=== PATIENT | female | born 1985 | race Hispanic/Latino ===

== ENCOUNTER 2025-04-10 13:47 | Emergency (ER) | payer BC ==
[~2025-04-10] VITALS: Ht 165.1 cm; Wt 83.9 kg
[2025-04-10 15:33] LABS: IMMATURE GRANULOCYTE ABSOLUTE 0.04 K/uL (0-1); NUCLEATED RED BLOOD CELLS 0.0 % (0.0-0.19); PLATELET COUNT (AUTO) 251 K/uL (130-400); RED BLOOD CELL COUNT(AUTO) 4.25 MIL/uL (4.00-5.50); RED CELL DISTRIBUTION WIDTH 13.6 % (11.0-15.5); WHITE BLOOD COUNT (AUTO) 9.8 K/uL (4.8-10.8)
[2025-04-10 16:15] LABS: CREATININE 0.5 mg/dL (0.5-1.0); GLOMERULAR FILTR. RATE CALC 122.0 mL/min (>90); GLUCOSE,RANDOM 84.0 mg/dL (70-105); SODIUM SERUM 142.0 mmol/L (136-145); UREA NITROGEN, BLOOD 11.0 mg/dL (7-18)
--- NOTE | 2025-04-10 16:22 | NUR ---
CT CONTACTED FOR PEND IMAGING
--- NOTE | 2025-04-10 16:50 | ERN ---
General Chief Complaint: Pelvic Pain Stated Complaint: PELVIC PAIN Time Seen by MD: 14:24 Source: patient History of Present Illness Initial Comments 39-year-old female with no past medical history beyond a and gastric bypass surgery. She comes in with left inguinal pain that is kind of a dull ache. It seems to get worse with the exertion and when she sits up to get out of bed. No other associated symptoms Allergies: Coded Allergies: No Known Drug Allergies (Unverified Allergy, Unknown, 04/10/25) Past Medical History Past Medical History: No Pertinent History Medical History Other: denies pmhx Past Surgical History: Appendectomy, Other, Surgical History Other: gastroectomy Constitutional: (-) chills, (-) diaphoresis, (-) fever, (-) malaise, (-) weakness, (-) other documentation EENTM: (-) eye pain, (-) blurred vision, (-) tearing, (-) double vision, (-) ear pain, (-) ear discharge, (-) nose pain, (-) nose congestion, (-) throat pain, (-) Throat swelling, (-) mouth pain, (-) tooth pain, (-) mouth swelling, (-) other documentation Respiratory: (-) cough, (-) orthopnea, (-) short of breath, (-) stridor, (-) wheezing, (-) other documentation Cardiovascular: (-) chest pain, (-) edema, (-) palpitations, (-) syncope, (-) dyspnea on exertion, (-) other documentation Gastrointestinal/Abdominal: (-) nausea, (-) vomiting, (-) diarrhea, (-) abdominal pain, (-) abdominal distention, (-) constipation, (-) rectal bleeding, (-) dark stool/melena, (-) other documentation Genitourinary: (-) vaginal discharge, (-) vaginal bleeding, (-) dysuria, (-) frequency, (-) hematuria, (-) pain, (-) other documentation Neuro: (-) altered mental status, (-) headache, (-) syncope, (-) paralysis, (-) numbness, (-) seizure, (-) pre-existing deficit, (-) tremors, (-) weakness, (-) dizziness, (-) slurred speech, (-) vertigo, (-) other documentation Physical Exam General Appearance: (+) no apparent distress Orientation: (+) alert, (+) oriented x 3 Head/Face Trauma: No Eye: bilateral eye normal inspection, bilateral eye PERRL, bilateral eye EOMI Ear, Nose, Throat: (+) hearing grossly normal, (+) normal ENT inspection, (+) moist mucous membraine Neck: (+) normal inspection, (+) supple, (+) full range of motion Respiratory: (+) chest non-tender, (+) lungs clear, (+) well ventilated Heart: (+) regular, (+) no gallop Vascular: (+) no edema, (+) normal peripheral pulse, (+) no JVD Gastrointestinal: (+) soft, (+) non-tender, (+) no organomegaly, (+) bowel sound present Genital Comment Patient has a benign abdominal exam and also a benign inguinal region exam no real bulges on coughing. No lymphadenopathy. When she points to her pain she points into her inguinal region. Results Laboratory and Microbiology Lab and Micro Result Laboratory Tests Test 04/10/25 14:18 04/10/25 15:12 04/10/25 15:56 Urine Color LIGHT-YELLOW (YELLOW) Urine Appearance CLEAR (CLEAR) Urine pH 6.0 (5.0-8.0) Urine Specific Stout 1.011 (1.001-1.031) Urine Protein NEGATIVE mg/dL (NEGATIVE) Urine Glucose (UA) NEGATIVE mg/dL (NEGATIVE) Urine Ketones NEGATIVE mg/dL (NEGATIVE) Urine Occult Blood NEGATIVE (NEGATIVE) Urine Nitrate NEGATIVE (NEGATIVE) Urine Bilirubin NEGATIVE mg/dL (NEGATIVE) Urine Urobilinogen 0.2 mg/dL (0.2-1.0) Urine Leukocyte Esterase NEGATIVE Codie/uL Urine HCG, Qualitative NEGATIVE (NEGATIVE) White Blood Count 9.8 K/uL (4.8-10.8) Red Blood Count 4.25 MIL/uL (4.00-5.50) Hemoglobin 13.4 g/dL (12.0-16.0) Hematocrit 40.5 % (36-48) Mean Corpuscular Volume 95.3 fL (79-99) Mean Corpuscular Hemoglobin 31.5 pg (27.0-33.0) Mean Corpuscular Hemoglobin Concent 33.1 g/dL (32.0-36.0) Red Cell Distribution Width 13.6 % (11.0-15.5) Platelet Count 251 K/uL (130-400) Mean Platelet Volume 11.6 fL (7.5-10.5) H Immature Granulocyte % (Auto) 0.4 % (0-1) Neutrophils (%) (Auto) 61.8 % (40.0-77.0) Lymphocytes (%) (Auto) 29.3 % (21.0-51.0) Monocytes (%) (Auto) 6.5 % (3.0-13.0) Eosinophils (%) (Auto) 1.0 % (0.0-8.0) Basophils (%) (Auto) 1.0 % (0.0-5.0) Neutrophils # (Auto) 6.1 K/uL (1.8-7.7) Lymphocytes # (Auto) 2.9 K/uL (1.0-4.8) Monocytes # (Auto) 0.6 K/uL (0.1-1.0) Eosinophils # (Auto) 0.10 K/uL (0.00-0.70) Basophils # (Auto) 0.10 K/uL (0.00-0.20) Absolute Immature Granulocyte (auto 0.04 K/uL (0-1) Nucleated Red Blood Cells 0.0 % (0.0-0.19) Sodium Level 142 mmol/L (136-145) Potassium Level 4.0 mmol/L (3.5-5.1) Chloride Level 105 mmol/L (101-111) Carbon Dioxide Level 32 mmol/L (21-32) Blood Urea Nitrogen 11 mg/dL (7-18) Creatinine 0.5 mg/dL (0.5-1.0) Glomerular Filtration Rate Calc 122 mL/min (>90) Random Glucose 84 mg/dL (70-105) Total Calcium 8.3 mg/dL (8.5-10.1) L MDM MDM: Differential diagnosis: Ovarian cyst, inguinal hernia, muscle strain, UTI Rationale: Tests considered and ordered secondary to shared decision making include: Previous outside records reviewed: Old ER visits. Risk of complication and/or morbidity or mortality of patient management: None Medications-Per medication reconciliation Need for hospitalization: Patient does meet criteria for hospitalization. Need for emergency major/minor surgery: No There are no social concerns with this patient. Prescription drug management Prescriptions will include symptomatic care Patient's prior external medical records from other ER visits were reviewed by me as indicated. Prior testing and results from previous visits were reviewed. Prior tests were taken into account with medical decision making and resource utilization, independent historian/historians were used to obtain complete medical history. I independently interpreted the test that were performed, results were reviewed by me and considered findings on radiology if ordered. Patient's physical exam was most consistent with a hernia possibly a ovarian cyst. CT scan showed an ovarian cyst. I did not see any evidence of a left inguinal hernia. Her CBC was normal. Chemistry panel was also normal. Urine negative urine negative. 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 ED Course Orders Procedure Category Date Status Time Urinalysis Profile LAB 04/10/25 Complete 14:54 Ct Abdomen/Pelvis CT 04/10/25 Taken W/Wo Contras 15:09 Basic Metabolic Panel LAB 04/10/25 Complete 15:09 Cbc With Differential LAB 04/10/25 Complete 15:09 ,Urine Test LAB 04/10/25 Complete 17:10 Iohexol (Omnipaque) PHA 04/10/25 Complete 17:52 Current Medications Medications (Trade) Dose Ordered Sig/Isael Route PRN Reason Start Time Stop Time Status Last Admin Dose Admin Iohexol (Omnipaque) 75 ml STK-MED ONCE IV 04/10/25 17:52 04/10/25 17:52 DC Vital Signs Date Time Temp Pulse Resp B/P (MAP) Pulse Ox O2 Delivery O2 Flow Rate FiO2 04/10/25 14:52 98.1 82 16 136/76 98 Room Air* 0 21 04/10/25 13:52 98.8 85 16 140/80 98 Room Air* 0 21 04/10/25 13:50 98.8 85 16 140/80 98 Room Air 0 DX & DISP Disposition: Discharge Departure Impression: Primary Impression: Left inguinal hernia Additional Impression: Left ovarian cyst Condition: Stable Additional Instructions: Please follow-up with your knocker off on May 17. Our CT scan does not show a left inguinal hernia, but it does show a possible left ovarian cyst. Your symptoms are consistent with a left inguinal hernia and CT scans are not always able to see them. I recommend following up with her primary care physician about the left lower quadrant pain. Referrals: JUANCARLOS ZAZUETA (PCP) SABRINA TORRES MD Apr 10, 2025 16:50
[2025-04-10 17:46] LABS: APPEARANCE,URINE CLEAR (CLEAR); GLUCOSE, URINE (UA) NEGATIVE (NEGATIVE); LEUKOCYTE ESTERASE ,URINE NEGATIVE Leu/uL (NEGATIVE); NITRATE,URINE NEGATIVE (NEGATIVE); OCCULT BLOOD,URINE NEGATIVE (NEGATIVE)
[2025-04-10 17:51] LABS: ADD UA MICROSCOPIC NO
[2025-04-10] MEDS ORDERED: IOHEXOL-350 75 ML VIAL IV ONE (17:52)
[2025-04-10 18:58] VITALS: BP 136/76; PULSE 80; RESP 16; TEMP 98.1; O2SAT 98
--- NOTE | 2025-04-10 19:33 | HMCIMG ---
EXAM: CT Abdomen and Pelvis with and without IV contrast CLINICAL HISTORY: left inguinal hernia TECHNIQUE: Axial computed tomography images of the abdomen and pelvis with and without intravenous contrast. CONTRAST: with and without intravenous contrast. COMPARISON: None FINDINGS: LUNG BASES: The lung bases appear clear. No pleural effusions are seen. LIVER: Unremarkable. GALLBLADDER AND BILE DUCTS: The gallbladder appears within normal limits. No radioopaque gallstones are seen. No biliary ductal dilatation is evident. PANCREAS: Unremarkable. SPLEEN: Unremarkable. ADRENAL GLANDS: Unremarkable. KIDNEYS, URETERS, AND BLADDER: The kidneys appear within normal limits. There is no hydronephrosis or hydroureter. No urinary calculi are seen. STOMACH AND BOWEL: Moderate-sized sliding hiatus hernia noted in the cardioesophageal junction. Previous gastric surgery. No evidence of bowel obstruction. No evidence suggesting enteritis or colitis. PERITONEUM: No free fluid. No free air. No evidence of inguinal, femoral, or obturator hernia on both sides. LYMPH NODES: No lymphadenopathy is evident. REPRODUCTIVE: Anteverted uterus. Cyst localized to the left adnexa/ovary measures 3.5 x 2 cm. VASCULATURE: No evidence of abdominal aortic aneurysm. BONES: No aggressive appearing osseous lesion. No acute osseous pathology evident. IMPRESSION: No acute intra-abdominal or pelvic abnormality. No evidence of an inguinal hernia on the left side. /[place]
== END 2025-04-10 19:04 | disposition home or self-care (01) ==
LOC: EDH 13:47
DX: K40.90 Unilateral inguinal hernia, without obstruction or gangrene, not specified as recurrent (principal); N83.202 Unspecified ovarian cyst, left side; Z90.49 Acquired absence of other specified parts of digestive tract; Z98.84 Bariatric surgery status
CPT/HCPCS: 99284; 74178; 80048; 85025; 81003; 81025; 36415; Q9967